=== PATIENT | female | born 1985 | race African-American/Black ===

== ENCOUNTER 2018-08-16 07:53 | Inpatient (IN) | payer MEDICAID ==
[~2018-08-16] VITALS: Ht 152.4 cm; Wt 61.2 kg
[2018-08-16] MEDS ORDERED: AMPICILLIN 2,000 MG in SODIUM CHLORIDE 0.9% 100 ML IV SCH (08:00)
[2018-08-16] MEDS ORDERED: CARBOPROST TROMETHAMINE 250 MCG/ML AMPUL IM PRN (08:00)
[2018-08-16] MEDS ORDERED: NALOXONE HCL 0.4 MG/ML 1ML VIAL IM PRN (08:00)
[2018-08-16] MEDS ORDERED: BUTORPHANOL TARTRATE 2 MG/ML VIAL IV PRN (08:00)
[2018-08-16] MEDS ORDERED: METHYLERGONOVINE MALEATE 0.2 MG/ML IM PRN (08:00)
[2018-08-16] MEDS ORDERED: ERYTHROMYCIN LACTOBIONATE 1,000 MG in SODIUM CHLORIDE 0.9% 250 ML IV SCH (08:15)
[2018-08-16] MEDS: LACTATED RINGERS 1,000 ML IV SCH ×2 (09:37→15:03)
[2018-08-16 09:40] LABS: BASOPHILS % 0.6 % (0.0-2.0); EOSINOPHILS % 0.9 % (0.0-5.0); HEMATOCRIT. 37.3 % (36.0-48.0); HEMOGLOBIN. 12.9 g/dL (12.0-16.0); LYMPHOCYTES % 8.8 % (20.0-50.0); MEAN CORPUSCULAR HEMOGLOBIN 32.5 pg (28.0-32.0); MEAN CORPUSCULAR VOLUME 93.9 fL (81.0-99.0); MEAN PLATELET VOLUME 8.5 fl (7.4-10.4); MONOCYTES % 6.8 % (2.0-8.0); NEUTROPHILS % 82.9 % (40.0-76.0); PLATELET 240 x1000/uL (130-400); RED BLOOD CELL COUNT 3.98 mill/uL (4.2-5.4); RED CELL DISTRIBUTION WIDTH 13.9 % (11.6-14.6)
[2018-08-16] MEDS: AZITHROMYCIN 500 MG in DEXT 5% WATER 250 ML IV SCH (09:43)
[2018-08-16] MEDS ORDERED: MAGNESIUM 4 G PREMIX 100 ML IV SCH (09:45)
[2018-08-16 09:46] LABS: INR 0.9; PARTIAL THROMBOPLASTIN TIME 30.3 sec (23.4-31.0); PROTHROMBIN TIME 9.5 sec (9.6-11.0)
[2018-08-16] MEDS: BETAMETHASONE ACET/BETAMET 30 MG/5 ML VIAL IM SCH (09:59)
[2018-08-16 10:05] LABS: CLARITY URINE CLOUDY (CLEAR); COLOR URINE YELLOW (YELLOW); KETONES URINE NEGATIVE (NEGATIVE); LEUKOCYTE ESTERASE URINE 2+ (NEGATIVE); NITRITE URINE NEGATIVE (NEGATIVE); OCCULT BLOOD URINE NEGATIVE (NEGATIVE); PH URINE 7.5 (4.5-8.0); PROTEIN URINE NEGATIVE (NEGATIVE); SPECIFIC GRAVITY URINE 1.007 (1.005-1.030); UROBILINOGEN URINE 0.2 E.U./dL (0.2-1.0)
[2018-08-16 10:43] LABS: *AMPHETAMINES SCREEN URINE NEGATIVE (NEGATIVE)
[2018-08-16 10:44] LABS: *BARBITURATES SCREEN URINE NEGATIVE (NEGATIVE); *BENZODIAZEPINES SCREEN URINE NEGATIVE (NEGATIVE); *COCAINE SCREEN URINE NEGATIVE (NEGATIVE); METHADONE URINE SCREEN NEGATIVE (NEGATIVE); OPIATES URINE SCREEN NEGATIVE (NEGATIVE); PHENCYCLIDINE URINE SCREEN NEGATIVE (NEGATIVE)
[2018-08-16 10:45] LABS: CANNABINOID URINE SCREEN NEGATIVE (NEGATIVE)
[2018-08-16 12:29] LABS: HEPATITIS B SURFACE ANTIGEN NEGATIVE
[2018-08-16] MEDS: AMPICILLIN 1,000 MG in SODIUM CHLORIDE 0.9% 50 ML IV SCH ×2 (16:02→22:29)
[2018-08-17] MEDS: AMPICILLIN 1,000 MG in SODIUM CHLORIDE 0.9% 50 ML IV SCH ×4 (02:30→20:29)
[2018-08-17] MEDS: LACTATED RINGERS 1,000 ML IV SCH (08:23)
[2018-08-17] MEDS: AZITHROMYCIN 500 MG in DEXT 5% WATER 250 ML IV SCH (09:36)
[2018-08-17] MEDS: BETAMETHASONE ACET/BETAMET 30 MG/5 ML VIAL IM SCH (10:01)
[2018-08-18] MEDS ORDERED: LACTATED RINGERS 1,000 ML IV SCH (00:45)
[2018-08-18] MEDS: AMPICILLIN 1,000 MG in SODIUM CHLORIDE 0.9% 50 ML IV SCH ×2 (02:13→07:59)
[2018-08-18] MEDS ORDERED: MISOPROSTOL 200MCG TABLET VG SCH (06:30)
[2018-08-18] MEDS ORDERED: CARBOPROST TROMETHAMINE 250 MCG/ML AMPUL IM PRN (06:30)
[2018-08-18] MEDS ORDERED: METHYLERGONOVINE MALEATE 0.2 MG/ML IM PRN (06:30)
[2018-08-18] MEDS ORDERED: DEXT 5%/LR + PITOCIN 20UNITS/L 1,000 ML IV SCH ×2 (06:30→11:40)
[2018-08-18] MEDS ORDERED: LIDOCAINE HCL 1% 20ML VIAL (Pyxis) INJ INFIL SCH (06:30)
[2018-08-18] MEDS ORDERED: NALOXONE HCL 0.4 MG/ML 1ML VIAL IM PRN (06:30)
[2018-08-18] MEDS: DEXT 5%/LR + PITOCIN 20UNITS/L 1,000 ML IV SCH ×2 (07:57→12:13)
[2018-08-18 08:46] LABS: BASOPHILS % 0.3 % (0.0-2.0); HEMATOCRIT. 36.7 % (36.0-48.0); HEMOGLOBIN. 12.3 g/dL (12.0-16.0); LYMPHOCYTES % 7.5 % (20.0-50.0); MEAN CORPUSCULAR HEMOGLOBIN 31.7 pg (28.0-32.0); MEAN CORPUSCULAR VOLUME 94.5 fL (81.0-99.0); MEAN PLATELET VOLUME 7.8 fl (7.4-10.4); MONOCYTES % 5.9 % (2.0-8.0); NEUTROPHILS % 86.3 % (40.0-76.0); PLATELET 261 x1000/uL (130-400); RED BLOOD CELL COUNT 3.89 mill/uL (4.2-5.4); RED CELL DISTRIBUTION WIDTH 14.3 % (11.6-14.6)
[2018-08-18] MEDS: AZITHROMYCIN 500 MG in DEXT 5% WATER 250 ML IV SCH (08:50)
[2018-08-18] MEDS: BUTORPHANOL TARTRATE 2 MG/ML VIAL IV PRN ×2 (09:11→11:21)
[2018-08-18] MEDS ORDERED: IBUPROFEN 400MG TABLET PO PRN (11:45)
[2018-08-18] MEDS ORDERED: RHO(D) IMMUNE GLOBULIN 300 MCG/SYR IM PRN (11:45)
[2018-08-18] MEDS ORDERED: OXYCODONE HCL/ACETAMINOPHEN 5/325MG TABLET PO PRN (11:45)
[2018-08-18 13:00] VITALS: BP 142/76
[2018-08-18 14:30] VITALS: BP 124/73
[2018-08-18] MEDS: IBUPROFEN 800MG TABLET PO PRN ×2 (14:31→22:16)
[2018-08-18 15:27] VITALS: BP 124/69
[2018-08-18 19:30] VITALS: BP 130/62
[2018-08-19 04:30] VITALS: BP 110/67
[2018-08-19 06:29] LABS: HEMOGLOBIN. 11.7 g/dL (12.0-16.0); MEAN CORPUSCULAR HEMOGLOBIN 32.6 pg (28.0-32.0); MEAN CORPUSCULAR VOLUME 94.3 fL (81.0-99.0); PLATELET 261 x1000/uL (130-400); RED CELL DISTRIBUTION WIDTH 14.1 % (11.6-14.6)
[2018-08-19] MEDS: IBUPROFEN 800MG TABLET PO PRN ×2 (08:32→18:14)
[2018-08-19 10:29] VITALS: BP 130/69
[2018-08-19 16:40] VITALS: BP 128/62
[2018-08-19 17:13] LABS: PLATELET ESTIMATE NORMAL
[2018-08-19 19:30] VITALS: BP 122/70
[2018-08-20] MEDS: IBUPROFEN 800MG TABLET PO PRN ×2 (02:55→13:12)
[2018-08-20 04:00] VITALS: BP 122/60
[2018-08-20 09:19] VITALS: BP 129/73
== END 2018-08-20 14:10 | disposition home or self-care (01) | DRG 560 ==
LOC: OBSVTOIN 07:53 → 8 EST LDRP 07:53 → 8EST 08-18 12:30
PROVIDERS: ADMIT Obstetrics & Gynecology; ATTEND Obstetrics & Gynecology
PROC: 10E0XZZ Delivery of Products of Conception, External Approach (ICD-10-PCS; principal; 2018-08-18)
DX: O42.913 Preterm premature rupture of membranes, unspecified as to length of time between rupture and onset of labor, third trimester (principal); O60.14X0 Preterm labor third trimester with preterm delivery third trimester, not applicable or unspecified; D62 Acute posthemorrhagic anemia; O99.12 Other diseases of the blood and blood-forming organs and certain disorders involving the immune mechanism complicating childbirth; D72.829 Elevated white blood cell count, unspecified; O90.81 Anemia of the puerperium; Z37.0 Single live birth; Z3A.33 33 weeks gestation of pregnancy; Z83.3 Family history of diabetes mellitus; Z82.49 Family history of ischemic heart disease and other diseases of the circulatory system; Z88.8 Allergy status to other drugs, medicaments and biological substances
CPT/HCPCS: 36415; 76805; 76818; 80305; 86592; 86703; 86762; 86850; 86900; 87070; 87077; 87340; 99281; G0378; J0290; J0456; J0595; J0702; J2590; J3475; J7050; J7060; J7120